=== PATIENT | female | born 1955 | race Caucasian/White ===

== ENCOUNTER 2021-12-13 13:19 | Inpatient (IN) | payer MEDICARE, BC ==
[~2021-12-13] VITALS: Ht 162.6 cm; Wt 87.5 kg
[2021-12-13 15:00] VITALS: BP 150/80; PULSE 92; TEMP 97.9
--- NOTE | 2021-12-13 15:00 | NUR ---
Patient to room 350 from the ED. Patient A&Ox4. VSS. IV CDI. Denies pain and discomfort. Independent in the room. Nurse oriented the patient to location, room and call light. Call light within reach
[2021-12-13] MEDS ORDERED: HCTZ12.5TAB PO (15:11)
[2021-12-13] MEDS ORDERED: OSTEO-BI-FLEX 21 TAB PO (15:12)
[2021-12-13] MEDS ORDERED: TYLENOL 500MG500 MG PO (15:15)
--- NOTE | 2021-12-13 17:29 | NUR ---
Patient laying in bed, A&Ox4. VSS. IV CDI, fluids infusing. Denies pain and discomfort. Tolerating PO intake. Independent in the room. Call light within reach
[2021-12-13 20:29] VITALS: BP 126/82; PULSE 87; TEMP 98.5
--- NOTE | 2021-12-13 20:55 | NUR ---
PATIENT IN BED, ALERT AND ORIENTED. DENIES PAIN. IVF TO L AC IV. TOLERATED FULL LIQUID DINNER. DENIES ADDITIONAL NEEDS.
[2021-12-13 23:51] VITALS: BP 130/61; PULSE 87; TEMP 98.2
[2021-12-14 04:14] VITALS: BP 120/56; PULSE 84; TEMP 98.2
[2021-12-14 05:33] LABS: BASO # 0.1 K/mm3 (0.0-0.2); BASO % 0.7 % (0.0-2.0); EOS # 0.1 K/mm3 (0.0-0.7); EOS % 0.7 % (0.0-4.0); GRAN # 8.5 K/mm3 (1.4-6.5); GRAN % 79.3 % (42.2-75.2); HEMOGLOBIN 11.3 g/dl (12.5-16.0); LYMPH # 1.3 K/mm3 (1.2-3.4); LYMPH % 11.6 % (20.0-51.0); MEAN CELL VOLUME 86 fl (80.0-100.0); MEAN CORPUSCULAR HEMOGLOBIN 28 pg (27-31); MEAN CORPUSCULAR HGB CONC 33 g/dl (33.0-37.0); MEAN PLATELET VOLUME 8.1 fl (7.4-10.4); MONO # 0.8 K/mm3 (0.1-0.6); MONO % 7.2 % (1.7-9.3); PLATELET COUNT 344 K/mm3 (130-400); RED BLOOD COUNT 4.07 M/mm3 (4.10-5.30); REDCELL DISTRIBUTION WIDTH-CV 12.7 % (11.5-14.5)
[2021-12-14 05:53] LABS: ALBUMIN 2.6 gm/dL (3.4-4.8); BILIRUBIN,TOTAL 0.7 mg/dL (0.2-1.2); CALCIUM 8.6 mg/dL (8.4-10.2); CREATININE, serum 0.72 mg/dL (0.57-1.11); HEMATOCRIT 34.8 % (37.0-47.0); POTASSIUM 3.5 mmol/L (3.5-4.5); TOTAL PROTEIN 6.1 gm/dL (6.2-8.1)
[2021-12-14 07:21] VITALS: BP 148/71; PULSE 86; TEMP 97.6
--- NOTE | 2021-12-14 07:51 | NUR ---
Patient laying in bed, A&Ox4. VSS. IV CDI, fluids infusing. Denies pain and discomfort. Call light within reach
[2021-12-14] MEDS ORDERED: AMOXICILLIN 8751 TAB PO (11:28)
[2021-12-14 12:01] VITALS: BP 147/72; PULSE 82; TEMP 98.6
--- NOTE | 2021-12-14 12:40 | NUR ---
Customer Service Trainer visited briefly with patient. Nothing else needed at this time.
--- NOTE | 2021-12-14 13:02 | NUR ---
Discharge paperwork reviewed with the patient. Patient verbalized an understanding to follow doctors orders. IV removed, tip intact. Waiting for ride. Call light within reach
--- NOTE | 2021-12-14 13:40 | NUR ---
Patient ambulated independently to the ER entrance to awaiting vehicle. No further needs expressed
== END 2021-12-14 13:40 | disposition home or self-care (01) | DRG 373 ==
LOC: SDCO 13:19 → SURG 14:42
PROVIDERS: ADMIT Surgery
DX: K35.33 Acute appendicitis with perforation, localized peritonitis, and gangrene, with abscess (principal); I10 Essential (primary) hypertension; D72.829 Elevated white blood cell count, unspecified; Z87.891 Personal history of nicotine dependence; Z88.5 Allergy status to narcotic agent; Z23 Encounter for immunization
CPT/HCPCS: G0378; J2543; J7120

== ENCOUNTER 2022-02-27 07:06 | Day surgery (SDC) | payer MEDICARE, BC ==
[~2022-02-27] VITALS: Ht 162.6 cm; Wt 87.2 kg
[~2022-02-27 07:06] MED LIST: AMOXICILLIN 8751 TAB PO; HCTZ12.5TAB PO; OSTEO-BI-FLEX 21 TAB PO; TYLENOL 500MG500 MG PO
[2022-02-27 07:47] VITALS: BP 154/76; PULSE 104; TEMP 98.1
[2022-02-27 07:47] LABS: BASO # 0.1 K/mm3 (0.0-0.2); BASO % 0.4 % (0.0-2.0); GRAN # 17.8 K/mm3 (1.4-6.5); GRAN % 87.1 % (42.2-75.2); HEMATOCRIT 43.5 % (37.0-47.0); HEMOGLOBIN 14.2 g/dl (12.5-16.0); LYMPH # 1.3 K/mm3 (1.2-3.4); LYMPH % 6.3 % (20.0-51.0); MEAN CELL VOLUME 84 fl (80.0-100.0); MEAN CORPUSCULAR HEMOGLOBIN 28 pg (27-31); MEAN CORPUSCULAR HGB CONC 33 g/dl (33.0-37.0); MEAN PLATELET VOLUME 9.2 fl (7.4-10.4); MONO # 1.2 K/mm3 (0.1-0.6); MONO % 5.8 % (1.7-9.3); PLATELET COUNT 322 K/mm3 (130-400); RED BLOOD COUNT 5.17 M/mm3 (4.10-5.30); REDCELL DISTRIBUTION WIDTH-CV 14.7 % (11.5-14.5)
--- NOTE | 2022-02-27 07:51 | NUR ---
Received call from Mary from lab regarding critical white blood cell count. Results read back. 0752: Dr. Hassan notified of critical white blood cell count.
[2022-02-27 08:19] LABS: CREATININE, serum 0.81 mg/dL (0.57-1.11); POTASSIUM 3.8 mmol/L (3.5-4.5)
[2022-02-27 08:29] LABS: MUCOUS Present (NOT PRESENT); URINE BACTERIA Rare /hpf (NONE SEEN); URINE RBC >50 /hpf (0-2); URINE WBC >50 /hpf (0-2)
[2022-02-27 08:30] LABS: URINE APPEARANCE Hazy (CLEAR/HAZY); URINE COLOR Yellow (YELLOW)
[2022-02-27 08:31] LABS: URINE BLOOD 3+ (NEGATIVE); URINE GLUCOSE Negative (NEGATIVE); URINE KETONE 1+ (NEGATIVE); URINE NITRATE Negative (NEGATIVE); URINE PROTEIN(semi-quant) 2+ (NEGATIVE); URINE UROBILINOGEN 0.2 E.U/dL (0.2-1.0)
[2022-02-27 09:25] LABS: COLLECTION METHOD CLEAN CATCH
[2022-02-27] MEDS ORDERED: BACTRIM DS 8001 TAB PO (09:54)
[2022-02-27] MEDS ORDERED: NORCO 325 MG-51 TAB PO (09:54)
[2022-02-27 10:30] VITALS: BP 123/71; PULSE 86; TEMP 96.7
[2022-02-27 10:45] VITALS: BP 119/69; PULSE 85
[2022-02-27 11:00] VITALS: BP 123/66; PULSE 88
[2022-02-27 11:51] VITALS: BP 128/73; PULSE 86; TEMP 98.7
--- NOTE | 2022-02-27 11:52 | NUR ---
1030: Patient arrived back into bay 7 from PACU. Patient is alert and awake. Vital signs stable on 1L of O2. Report received from WILSON Dill Patient requesting water and applesauce. Incisions x4 are clean, dry, and well approximated. Patient denies pain and nausea. Call light left within reach. 1045: Patient vitally stable weaned to room air. Tolerating food and drink well. Denies pain and nausea. 1100: Patient up to restroom via stand by assist. Tolerating activity well. 1105: Patient able to void successfully. Patient to get dressed independently in room. [id number]: IV removed without complications. Went through discharge instructions with patient. Escorted to emergency department entrance via wheelchair where Yeny, sister, met patient. Patient got into personal vehicle unassisted and left in the care of his friend.
== END 2022-02-27 11:35 | disposition home or self-care (01) ==
LOC: SDCO 07:06
PROVIDERS: Surgery
DX: K35.80 Unspecified acute appendicitis (principal); N39.0 Urinary tract infection, site not specified; I10 Essential (primary) hypertension; Z87.891 Personal history of nicotine dependence
CPT/HCPCS: J1885; J2405; J2704; J3010; J7120